=== PATIENT | female | born 1950 | race Caucasian/White ===

== ENCOUNTER 2019-04-27 10:17 | Outpatient (RCR) | payer MEDICARE, OTHER, SELFPAY | END 2019-05-08 00:01 | LOC: WOUND 10:17 | PROVIDERS: Family Provider Registered Nurse; Visit Provider Surgery | DX: T81.89XA Other complications of procedures, not elsewhere classified, initial encounter (principal); Y83.8 Other surgical procedures as the cause of abnormal reaction of the patient, or of later complication, without mention of misadventure at the time of the procedure; I96 Gangrene, not elsewhere classified | CPT/HCPCS: 11042 ×3; 36415; 73701; 80053; 93971; G0463; Q9967 ==

== ENCOUNTER → 2019-05-15 10:48 | Outpatient (BNVA) | payer MEDICARE, OTHER, SELFPAY | PROVIDERS: Family Provider Registered Nurse; PCP Registered Nurse; Referring Provider Registered Nurse; Visit Provider Orthopaedic Surgery | DX: S82.202A Unspecified fracture of shaft of left tibia, initial encounter for closed fracture (principal); S82.402A Unspecified fracture of shaft of left fibula, initial encounter for closed fracture; X58.XXXA Exposure to other specified factors, initial encounter | CPT/HCPCS: 73590 ==

== ENCOUNTER 2019-06-08 10:36 | Outpatient (RCR) | payer MEDICARE, OTHER, SELFPAY | END 2019-06-08 23:59 | disposition home or self-care (01) | LOC: WOUND 10:36 | PROVIDERS: Family Provider Registered Nurse; PCP Registered Nurse; Visit Provider Surgery | DX: T81.89XA Other complications of procedures, not elsewhere classified, initial encounter (principal); Y83.8 Other surgical procedures as the cause of abnormal reaction of the patient, or of later complication, without mention of misadventure at the time of the procedure | CPT/HCPCS: 11042; 99212 ==

== ENCOUNTER 2019-06-12 10:22 | Outpatient (CLI) | payer MEDICARE, OTHER, SELFPAY ==
--- NOTE | 2019-06-12 10:35 | XR_ITS ---
WS: [id number] TIBIA-FIBULA LEFT TECHNIQUE: 2 views of the left tibia-fibula CLINICAL INFORMATION: FRACTURE COMPARISON: None. FINDINGS: Left TKA. Postoperative changes plate and screw fixation proximal tibia extending to the distal tibia l plafond. Normal alignment. Patellar resurfacing. Plantar calcaneal spurring. XR/XR tibia fibula LT 2V [id number] IMPRESSION: 1. Left TKA with patellar resurfacing. 2. Postoperative changes plate and screw fixation tibial shaft extending to th e tibial plafond. Normal alignment. Evidence of some interval healing compared to previous. 3. Plantar calcaneal spurring.
== END 2019-06-12 10:23 | disposition home or self-care (01) ==
LOC: RAD 10:27
PROVIDERS: Family Provider Registered Nurse; PCP Registered Nurse; Visit Provider Orthopaedic Surgery
DX: S82.202A Unspecified fracture of shaft of left tibia, initial encounter for closed fracture (principal); S82.402A Unspecified fracture of shaft of left fibula, initial encounter for closed fracture; X58.XXXA Exposure to other specified factors, initial encounter; Z96.652 Presence of left artificial knee joint; M77.32 Calcaneal spur, left foot
CPT/HCPCS: 73590

== ENCOUNTER → 2020-03-18 14:19 | Outpatient (BNVA) | payer MEDICARE, OTHER, SELFPAY | PROVIDERS: Family Provider Registered Nurse; PCP Registered Nurse; Visit Provider Specialist | DX: G62.89 Other specified polyneuropathies | CPT/HCPCS: 95909 ==

== ENCOUNTER → 2020-04-02 12:17 | Outpatient (BNVA) | payer MEDICARE, OTHER, SELFPAY | PROVIDERS: Family Provider Registered Nurse; PCP Registered Nurse; Referring Provider Nurse Practitioner Family; Visit Provider Anesthesiology Pain Medicine | DX: M43.12 Spondylolisthesis, cervical region (principal) | CPT/HCPCS: 99203 ==

== ENCOUNTER → 2020-05-19 10:51 | Outpatient (BNVA) | payer MEDICARE, OTHER, SELFPAY | PROVIDERS: Family Provider Registered Nurse; PCP Registered Nurse; Visit Provider Nurse Practitioner | DX: G62.9 Polyneuropathy, unspecified (principal); M79.605 Pain in left leg | CPT/HCPCS: 99204; 99205 ==

== ENCOUNTER → 2020-05-20 10:57 | Outpatient (BNVA) | payer MEDICARE, OTHER, SELFPAY | PROVIDERS: Family Provider Registered Nurse; PCP Registered Nurse; Visit Provider Anesthesiology Pain Medicine | DX: M47.812 Spondylosis without myelopathy or radiculopathy, cervical region (principal); M48.02 Spinal stenosis, cervical region; M43.10 Spondylolisthesis, site unspecified | CPT/HCPCS: 99214 ==

== ENCOUNTER 2020-11-12 13:08 | Outpatient (CLI) | payer MEDICARE, OTHER, SELFPAY ==
--- NOTE | 2020-11-12 13:20 | MM_ITS ---
WS: [id number] BILATERAL SCREENING DIGITAL MAMMOGRAM WITH CAD HISTORY: SCREENING COMPARISON: 08/10/2018 and 12/26/2015 Bilateral CC and MLO views submitted. Computer aided detection analyzed. Breast composition: There are scattered areas of fibroglandular density. No suspicious masses, microc alcifications or architectural distortion. Stable 5 mm nodule 6:00 RIGHT breast at a middle depth. No suspicious groups of calcifications or distortion. MM/[place] [id number] IMPRESSION: BI-RADS: 2-Benign FOLLOW UP: 1 Year Follow-up
== END 2020-11-12 13:09 | disposition home or self-care (01) ==
LOC: RADSHAW 13:17
PROVIDERS: PCP Registered Nurse; Visit Provider Nurse Practitioner
DX: Z12.31 Encounter for screening mammogram for malignant neoplasm of breast (principal)
CPT/HCPCS: 77067

== ENCOUNTER 2021-01-29 13:58 | Outpatient (CLI) | payer MEDICARE, OTHER, SELFPAY ==
--- NOTE | 2021-01-29 14:45 | XR_ITS ---
WS: [id number] DEXA (DUAL ENERGY X-RAY ABSORPTIOMETRY) Bone mineral density was performed using a [employer] machine. HISTORY: M85.80 - Other specified disorders of bone density and st... COMPARISON: None available. Lumbar spine BMD (L1-L4): 1.032 g/cm2 T score: -1.2 Z score: -0.7 Total hip BMD: Left: 0.814 g/cm2. T score: -1.5 Z score: -0.9 Right: 0.823 g/cm2. T score: -1.5 Z score: -0.8 10 year probability of a major osteoporotic fracture is 19%. XR/XR DEXA axial skeleton* [id number] IMPRESSION: OSTEOPENIA based upon the WHO classification for females.
== END 2021-01-29 13:59 | disposition home or self-care (01) ==
PROVIDERS: PCP Registered Nurse; Visit Provider Registered Nurse
DX: Z78.0 Asymptomatic menopausal state (principal); M85.80 Other specified disorders of bone density and structure, unspecified site
CPT/HCPCS: 77080

== ENCOUNTER 2021-06-05 12:43 | Outpatient (CLI) | payer MEDICARE, OTHER, SELFPAY ==
--- NOTE | 2021-06-05 12:52 | US_ITS ---
WS: [id number] THYROID ULTRASOUND HISTORY: VERY LOW THYROID LAB RESULT COMPARISON: None available. Right lobe: 0.7 cm x 1.1 cm x 2.6 cm (w x ap x l). Volume: 1.0 cm3. Small shrunken heterogeneous atrophied thyroid lobe. Lobulated margins. There is a hyperechoic nodule with a maximum diameter 4 mm in the mid gland. Left lobe: 0.6 cm x 0.6 cm x 2.3 cm (w x ap x l). Volume: 0.4 cm3. Small shrunken heterogeneous thyroid lobe. No nodules or increased vascularity. Isthmus: 0.2 cm. US/US thyroid [id number] IMPRESSION: Shrunken, heterogeneous lobulated thyroid gland. No suspicious nodules.
== END 2021-06-05 12:44 | disposition home or self-care (01) ==
LOC: RAD 12:47
PROVIDERS: PCP Registered Nurse; Visit Provider Nurse Practitioner
DX: E03.9 Hypothyroidism, unspecified (principal)
CPT/HCPCS: 76536

== ENCOUNTER → 2021-07-08 10:36 | Outpatient (BNVA) | payer MEDICARE, OTHER, SELFPAY | PROVIDERS: PCP Registered Nurse; Referring Provider Registered Nurse; Visit Provider Anesthesiology Pain Medicine | DX: G89.29 Other chronic pain (principal); M47.812 Spondylosis without myelopathy or radiculopathy, cervical region; M48.02 Spinal stenosis, cervical region; M43.10 Spondylolisthesis, site unspecified; M79.605 Pain in left leg; Z87.81 Personal history of (healed) traumatic fracture | CPT/HCPCS: 99214 ==

== ENCOUNTER → 2021-08-05 10:11 | Outpatient (BNVA) | payer MEDICARE, OTHER, SELFPAY | PROVIDERS: PCP Registered Nurse; Visit Provider Anesthesiology Pain Medicine | DX: G89.29 Other chronic pain (principal); M47.816 Spondylosis without myelopathy or radiculopathy, lumbar region; M48.02 Spinal stenosis, cervical region; M47.812 Spondylosis without myelopathy or radiculopathy, cervical region; R29.898 Other symptoms and signs involving the musculoskeletal system; M79.605 Pain in left leg; M43.10 Spondylolisthesis, site unspecified; Z87.81 Personal history of (healed) traumatic fracture; E06.3 Autoimmune thyroiditis; E03.8 Other specified hypothyroidism | CPT/HCPCS: 72110; 99203; 99204; 99214 ==

== ENCOUNTER → 2021-08-20 10:09 | Outpatient (BNVA) | payer MEDICARE, OTHER, SELFPAY | PROVIDERS: PCP Registered Nurse; Visit Provider Internal Medicine | DX: R41.3 Other amnesia (principal); E03.8 Other specified hypothyroidism; E06.3 Autoimmune thyroiditis | CPT/HCPCS: 84439; 84443 ==

== ENCOUNTER → 2021-09-02 09:57 | Outpatient (BNVA) | payer MEDICARE, OTHER, SELFPAY | PROVIDERS: PCP Registered Nurse; Visit Provider Anesthesiology Pain Medicine | DX: G89.29 Other chronic pain (principal); M47.812 Spondylosis without myelopathy or radiculopathy, cervical region; M48.02 Spinal stenosis, cervical region; M79.605 Pain in left leg; M43.10 Spondylolisthesis, site unspecified; G62.9 Polyneuropathy, unspecified; R29.898 Other symptoms and signs involving the musculoskeletal system; Z87.81 Personal history of (healed) traumatic fracture | CPT/HCPCS: 99214 ==

== ENCOUNTER 2021-10-13 13:39 | Outpatient (RCR) | payer MEDICARE, OTHER, SELFPAY | END 2021-11-05 23:59 | disposition home or self-care (01) | LOC: SPT 13:39 | PROVIDERS: PCP Registered Nurse; Referring Provider Obstetrics & Gynecology; Visit Provider Obstetrics & Gynecology | DX: N39.41 Urge incontinence (principal) | CPT/HCPCS: 97110; 97161 ==

== ENCOUNTER 2021-10-20 15:40 | Outpatient (CLI) | payer MEDICARE, OTHER, SELFPAY ==
--- NOTE | 2021-10-20 16:00 | MR_ITS ---
WS: [id number] MRI LUMBAR SPINE NONCONTRAST TECHNIQUE: Sagittal T1, T2 and STIR imaging. Axial T1 and T2 imaging. CLINICAL INFORMATION: M48.062 - Spinal stenosis, lumbar region with neurogenic ... COMPARISON: None. FINDINGS: Mild lumbar curve convex LEFT. No acute compression. No high-grade central canal stenosis. L1-L2: Mild annular bulging. Mild facet arthropathy. Spinal canal and foramen are patent. L2-L3: No significant disc bulging. Mild facet arthropathy. Spinal canal and foramen are patent. L3-L4: Mild annular bulging. Small RIGHT foraminal protrusion. Mild RIGHT and no significant LEFT for aminal narrowing. Impingement on the exiting RIGHT L3 nerve root. This moderate facet arthropathy. L4-L5: Mild annular bulging. Moderate facet arthropathy ligamentum flavum hypertrophy. Mild to modera te narrowing of the thecal sac. Prominent epidural fat. LEFT eccentric disc bulging with mild LEFT fo raminal narrowing and contact of the exiting L4 nerve root. L5-S1: Mild disc bulging and osteophytic ridging. Slight effacement of ventral thecal sac. Slight con tact of the RIGHT S1 nerve root. Spinal canal and foramen are patent. Mild facet arthropathy. 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 MR/MR lumbar spine wo con* [id number] IMPRESSION: 1. Mild lumbar curve convex LEFT. No acute compression. No high-grade central canal stenosis. 2. Mild narrowing of the thecal sac L3-L4 and moderate narrowing L4-L5 due to slight annular bulging in combination with facet arthropathy and ligamentum fla vum hypertrophy with prominent epidural fat. 3. RIGHT foraminal protrusion L3-L4 impinges the exiting RIGHT L3 nerve root. Recommend correlation RIGHT L3 nerve root symptoms. 4. Disc bulging with osteophytic ridging L5-S1 slightly contacts RIGHT S1 nerv e root. 5. Mild LEFT L4-L5 foraminal narrowing. 6. Moderate facet arthropathy L3-L4 L4-L5.
== END 2021-10-20 15:41 | disposition home or self-care (01) ==
LOC: RAD 15:42
PROVIDERS: PCP Registered Nurse; Visit Provider Anesthesiology Pain Medicine
DX: M48.062 Spinal stenosis, lumbar region with neurogenic claudication (principal); M51.16 Intervertebral disc disorders with radiculopathy, lumbar region; M47.816 Spondylosis without myelopathy or radiculopathy, lumbar region
CPT/HCPCS: 72148

== ENCOUNTER → 2021-11-02 09:55 | Outpatient (BNVA) | payer MEDICARE, OTHER, SELFPAY | PROVIDERS: PCP Registered Nurse; Visit Provider Anesthesiology Pain Medicine | DX: G89.29 Other chronic pain (principal); M47.816 Spondylosis without myelopathy or radiculopathy, lumbar region; M43.12 Spondylolisthesis, cervical region; M41.9 Scoliosis, unspecified; M79.605 Pain in left leg; M47.812 Spondylosis without myelopathy or radiculopathy, cervical region; M48.02 Spinal stenosis, cervical region; G62.9 Polyneuropathy, unspecified; R29.898 Other symptoms and signs involving the musculoskeletal system; Z87.81 Personal history of (healed) traumatic fracture | CPT/HCPCS: 99214 ==

== ENCOUNTER 2021-11-06 06:00 | Outpatient (RCR) | payer MEDICARE, OTHER, SELFPAY | END 2021-12-06 23:59 | disposition home or self-care (01) | LOC: SPT 06:00 | PROVIDERS: PCP Registered Nurse; Referring Provider Obstetrics & Gynecology; Visit Provider Obstetrics & Gynecology | DX: N39.41 Urge incontinence (principal) | CPT/HCPCS: 97110; 97112; 97530 ==

== ENCOUNTER 2021-11-17 06:00 | Outpatient (RCR) | payer MEDICARE, OTHER, SELFPAY | END 2021-12-06 23:59 | disposition home or self-care (01) | LOC: SPT 06:00 | PROVIDERS: PCP Registered Nurse; Referring Provider Anesthesiology Pain Medicine; Visit Provider Anesthesiology Pain Medicine | DX: M47.816 Spondylosis without myelopathy or radiculopathy, lumbar region (principal); M43.10 Spondylolisthesis, site unspecified; M41.9 Scoliosis, unspecified | CPT/HCPCS: 97110; 97161 ==

== ENCOUNTER 2021-12-07 06:00 | Outpatient (RCR) | payer MEDICARE, OTHER, SELFPAY | END 2022-01-06 23:59 | disposition home or self-care (01) | LOC: SPT 06:00 | PROVIDERS: Visit Provider Obstetrics & Gynecology | DX: M47.816 Spondylosis without myelopathy or radiculopathy, lumbar region (principal); M43.10 Spondylolisthesis, site unspecified; M41.9 Scoliosis, unspecified | CPT/HCPCS: 97110; 97530 ==

== ENCOUNTER 2021-12-07 06:00 | Outpatient (RCR) | payer MEDICARE, OTHER, SELFPAY | END 2022-01-06 23:59 | disposition home or self-care (01) | LOC: SPT 06:00 | PROVIDERS: Visit Provider Anesthesiology Pain Medicine | DX: M47.816 Spondylosis without myelopathy or radiculopathy, lumbar region (principal); M43.10 Spondylolisthesis, site unspecified; M41.9 Scoliosis, unspecified | CPT/HCPCS: 97110; 97530 ==

== ENCOUNTER 2021-12-14 13:09 | Outpatient (CLI) | payer OTHER, MEDICARE, SELFPAY ==
--- NOTE | 2021-12-14 13:25 | MM_ITS ---
WS: [id number] BILATERAL 3D TOMOSYNTHESIS DIGITAL SCREENING MAMMOGRAPHY WITH CAD CLINICAL INFORMATION: SCREENING HISTORY: Screening mammogram. No current complaints. COMPARISON: November 12, 2020 TECHNIQUE: Bilateral CC and MLO views. FINDINGS: Scattered fibroglandular densities bilaterally. Stable 5 mm nodule 6:00 position RIGHT breast mid dep th. No suspicious focal mass, asymmetry, calcifications, or architectural distortion. No evidence of malignancy. MM/[place] [id number] IMPRESSION: BI-RADS: 2-Benign FOLLOW UP: 1 Year Follow-up Recommend return to annual screening mammography.
== END 2021-12-14 13:10 | disposition home or self-care (01) ==
PROVIDERS: PCP Registered Nurse; Visit Provider Nurse Practitioner
DX: Z12.31 Encounter for screening mammogram for malignant neoplasm of breast (principal)
CPT/HCPCS: 77063; 77067

== ENCOUNTER → 2021-12-28 08:52 | Outpatient (BNVA) | payer MEDICARE, OTHER, SELFPAY | PROVIDERS: Visit Provider Anesthesiology Pain Medicine | DX: M43.12 Spondylolisthesis, cervical region (principal); G89.29 Other chronic pain; M47.812 Spondylosis without myelopathy or radiculopathy, cervical region; M79.605 Pain in left leg; M48.02 Spinal stenosis, cervical region; M47.816 Spondylosis without myelopathy or radiculopathy, lumbar region; R29.898 Other symptoms and signs involving the musculoskeletal system; M41.9 Scoliosis, unspecified; G62.9 Polyneuropathy, unspecified; Z87.81 Personal history of (healed) traumatic fracture | CPT/HCPCS: 99213 ==

== ENCOUNTER 2022-01-07 06:00 | Outpatient (RCR) | payer OTHER, SELFPAY | END 2022-02-05 23:59 | disposition home or self-care (01) | LOC: SPT 06:00 | PROVIDERS: Visit Provider Anesthesiology Pain Medicine | DX: M47.816 Spondylosis without myelopathy or radiculopathy, lumbar region (principal); M43.10 Spondylolisthesis, site unspecified; M41.9 Scoliosis, unspecified | CPT/HCPCS: 97110; 97530 ==

== ENCOUNTER 2022-01-19 06:00 | Outpatient (RCR) | payer OTHER, SELFPAY | END 2022-02-05 23:59 | disposition home or self-care (01) | LOC: SPT 06:00 | PROVIDERS: Visit Provider Nurse Practitioner | DX: M26.69 Other specified disorders of temporomandibular joint (principal) | CPT/HCPCS: 20560; 97110; 97161 ==

== ENCOUNTER 2022-02-06 06:00 | Outpatient (RCR) | payer OTHER, SELFPAY | END 2022-03-08 23:59 | disposition home or self-care (01) | LOC: SPT 06:00 | PROVIDERS: Visit Provider Nurse Practitioner | DX: M26.69 Other specified disorders of temporomandibular joint (principal) | CPT/HCPCS: 20560; 97110 ==

== ENCOUNTER 2022-03-09 06:00 | Outpatient (RCR) | payer OTHER, SELFPAY | END 2022-04-07 23:59 | disposition home or self-care (01) | LOC: SPT 06:00 | PROVIDERS: Visit Provider Nurse Practitioner | DX: M25.552 Pain in left hip (principal) | CPT/HCPCS: 97110 ==

== ENCOUNTER 2022-04-08 06:00 | Outpatient (RCR) | payer OTHER, SELFPAY | END 2022-05-08 23:59 | disposition home or self-care (01) | LOC: SPT 06:00 | PROVIDERS: Visit Provider Nurse Practitioner | DX: M47.816 Spondylosis without myelopathy or radiculopathy, lumbar region (principal); M43.10 Spondylolisthesis, site unspecified; M41.9 Scoliosis, unspecified | CPT/HCPCS: 97110 ==

== ENCOUNTER 2022-05-18 06:00 | Outpatient (RCR) | payer OTHER, SELFPAY | END 2022-06-08 23:59 | disposition home or self-care (01) | LOC: SPT 06:00 | PROVIDERS: Visit Provider Nurse Practitioner | DX: M25.552 Pain in left hip (principal) | CPT/HCPCS: 97110; 97161 ==

== ENCOUNTER 2022-06-09 06:00 | Outpatient (RCR) | payer OTHER, SELFPAY | END 2022-07-06 23:59 | disposition home or self-care (01) | LOC: SPT 06:00 | PROVIDERS: Visit Provider Nurse Practitioner | DX: M25.552 Pain in left hip (principal) | CPT/HCPCS: 97110 ==

== ENCOUNTER → 2022-06-28 10:53 | Outpatient (BNVA) | payer OTHER, SELFPAY | PROVIDERS: Visit Provider Anesthesiology Pain Medicine | DX: M54.9 Dorsalgia, unspecified (principal); M79.605 Pain in left leg | CPT/HCPCS: 99212 ==

== ENCOUNTER 2022-07-07 06:00 | Outpatient (RCR) | payer OTHER, SELFPAY | END 2022-08-06 23:59 | disposition home or self-care (01) | LOC: SPT 06:00 | PROVIDERS: Visit Provider Nurse Practitioner | DX: M25.552 Pain in left hip (principal) | CPT/HCPCS: 20560; 97110 ==

== ENCOUNTER 2022-08-07 06:00 | Outpatient (RCR) | payer OTHER, SELFPAY | END 2022-09-05 23:59 | disposition home or self-care (01) | LOC: SPT 06:00 | PROVIDERS: Visit Provider Nurse Practitioner | DX: M25.552 Pain in left hip (principal) | CPT/HCPCS: 97110 ==

== ENCOUNTER → 2022-08-09 14:20 | Outpatient (BNVA) | payer OTHER, SELFPAY | PROVIDERS: Visit Provider Podiatrist Foot & Ankle Surgery | DX: M76.71 Peroneal tendinitis, right leg (principal); M21.41 Flat foot [pes planus] (acquired), right foot; M21.42 Flat foot [pes planus] (acquired), left foot | CPT/HCPCS: 99213 ==

== ENCOUNTER → 2022-08-10 14:52 | Outpatient (BNVA) | payer OTHER, SELFPAY | PROVIDERS: Visit Provider Otolaryngology | DX: R13.10 Dysphagia, unspecified (principal); K21.9 Gastro-esophageal reflux disease without esophagitis; K44.9 Diaphragmatic hernia without obstruction or gangrene; E66.9 Obesity, unspecified; Z68.38 Body mass index [BMI] 38.0-38.9, adult | CPT/HCPCS: 31575; 99204 ==

== ENCOUNTER → 2022-10-11 13:11 | Outpatient (BNVA) | payer OTHER, SELFPAY | PROVIDERS: PCP Nurse Practitioner; Visit Provider Otolaryngology | DX: R13.10 Dysphagia, unspecified (principal); K21.9 Gastro-esophageal reflux disease without esophagitis; K44.9 Diaphragmatic hernia without obstruction or gangrene | CPT/HCPCS: 31575; 99213 ==

== ENCOUNTER → 2022-10-12 15:21 | Outpatient (BNVA) | payer MEDICARE, OTHER, SELFPAY | PROVIDERS: PCP Nurse Practitioner; Visit Provider Dermatology | DX: S20.462A Insect bite (nonvenomous) of left back wall of thorax, initial encounter (principal); W57.XXXA Bitten or stung by nonvenomous insect and other nonvenomous arthropods, initial encounter; L81.4 Other melanin hyperpigmentation; L57.0 Actinic keratosis; D23.71 Other benign neoplasm of skin of right lower limb, including hip; L82.1 Other seborrheic keratosis; D23.39 Other benign neoplasm of skin of other parts of face; D18.01 Hemangioma of skin and subcutaneous tissue | CPT/HCPCS: 17000; 17003; 99213 ==

== ENCOUNTER → 2022-11-15 13:07 | Outpatient (BNVA) | payer OTHER, SELFPAY | PROVIDERS: PCP Nurse Practitioner; Visit Provider Podiatrist Foot & Ankle Surgery | DX: M76.71 Peroneal tendinitis, right leg (principal); M21.41 Flat foot [pes planus] (acquired), right foot; M21.42 Flat foot [pes planus] (acquired), left foot; M76.72 Peroneal tendinitis, left leg | CPT/HCPCS: 99213 ==

== ENCOUNTER 2023-01-20 11:43 | Outpatient (CLI) | payer OTHER, SELFPAY ==
--- NOTE | 2023-01-20 11:48 | MM_ITS ---
WS: [id number] BILATERAL SCREENING DIGITAL TOMOSYNTHESIS MAMMOGRAM WITH CAD HISTORY: SCREENING COMPARISON: 12/14/2021, 11/12/2020 Bilateral CC and MLO views with tomosynthesis and synthetic mammography submitted. Computer aided det ection analyzed. Breast composition: The breasts are almost entirely fatty. No suspicious masses, microcalcifications or architectural distortion. Round nodule measuring 4 mm in the anterior central RIGHT breast is stab le over multiple prior studies. No new mass or calcification. IMPRESSION: MM/[place] [id number] BI-RADS: 2-Benign FOLLOW UP: 1 Year Follow-up
== END 2023-01-20 11:44 | disposition home or self-care (01) ==
PROVIDERS: PCP Nurse Practitioner; Visit Provider Nurse Practitioner
DX: Z12.31 Encounter for screening mammogram for malignant neoplasm of breast (principal)
CPT/HCPCS: 77063; 77067

== ENCOUNTER → 2023-09-05 13:57 | Outpatient (BNVA) | payer OTHER, SELFPAY | PROVIDERS: PCP Nurse Practitioner; Visit Provider Dermatology | DX: D17.1 Benign lipomatous neoplasm of skin and subcutaneous tissue of trunk (principal); L71.8 Other rosacea; S80.861A Insect bite (nonvenomous), right lower leg, initial encounter; X58.XXXA Exposure to other specified factors, initial encounter; L81.4 Other melanin hyperpigmentation; D18.01 Hemangioma of skin and subcutaneous tissue; L82.1 Other seborrheic keratosis | CPT/HCPCS: 99214 ==

== ENCOUNTER → 2023-10-06 09:17 | Outpatient (BNVA) | payer OTHER, SELFPAY | PROVIDERS: PCP Nurse Practitioner; Visit Provider Dermatology | DX: D48.5 Neoplasm of uncertain behavior of skin (principal) | CPT/HCPCS: 11406; 12034 ==

== ENCOUNTER → 2024-10-18 14:23 | Outpatient (BNVA) | payer OTHER, SELFPAY | PROVIDERS: PCP Registered Nurse; Visit Provider Dermatology | DX: L71.8 Other rosacea (principal); L82.1 Other seborrheic keratosis; D22.5 Melanocytic nevi of trunk; S90.562A Insect bite (nonvenomous), left ankle, initial encounter; X58.XXXA Exposure to other specified factors, initial encounter; L81.4 Other melanin hyperpigmentation; B35.1 Tinea unguium; D48.5 Neoplasm of uncertain behavior of skin | CPT/HCPCS: 11102; 99213 ==

== ENCOUNTER → 2024-12-04 13:19 | Outpatient (BNVA) | payer OTHER, SELFPAY | PROVIDERS: PCP Nurse Practitioner; Visit Provider Podiatrist Foot & Ankle Surgery | DX: L60.3 Nail dystrophy (principal) | CPT/HCPCS: 99213 ==

== ENCOUNTER 2024-12-24 14:39 | Oncology outpatient (recurring) (ONCR) | payer OTHER, SELFPAY | END 2025-01-06 23:59 | disposition home or self-care (01) | PROVIDERS: PCP Nurse Practitioner; Visit Provider Internal Medicine Medical Oncology | DX: Z08 Encounter for follow-up examination after completed treatment for malignant neoplasm (principal); Z85.3 Personal history of malignant neoplasm of breast; Z92.3 Personal history of irradiation | CPT/HCPCS: 99204 ==

== ENCOUNTER → 2025-01-01 13:00 | Outpatient (BNVA) | payer OTHER, SELFPAY | PROVIDERS: PCP Nurse Practitioner; Visit Provider Podiatrist Foot & Ankle Surgery | DX: L60.3 Nail dystrophy (principal); L60.8 Other nail disorders; B35.1 Tinea unguium | CPT/HCPCS: 99213 ==

== ENCOUNTER 2025-02-05 14:33 | Outpatient (CLI) | payer OTHER, SELFPAY ==
--- NOTE | 2025-02-05 14:38 | XR_ITS ---
WS: [email or web address] DEXA (DUAL ENERGY X-RAY ABSORPTIOMETRY) Bone mineral density was performed using a [employer] machine. HISTORY: SCREENING FOR OSTEOPOROSIS COMPARISON: 01/29/2021 Lumbar spine BMD (L1-L4): 1.177 g/cm2 T score: 0.0 Z score: 0.6 Total hip BMD: Left: 0.834 g/cm2. T score: -1.4 Z score: -0.5 Right: 0.858 g/cm2. T score: -1.2 Z score: -0.3 10 year probability of a major osteoporotic fracture is 16.5%. Compared to the prior study from 01/29/2021. Lumbar spine bone mineral density has increased by 14.1%. Bilateral hips bone mineral density has increased by 3.3%. XR/XR DEXA axial skeleton* [id number] IMPRESSION: OSTEOPENIA based upon the WHO classification for females. Significant increase in bone mineral density within the lumbar spine and hips s manjula the prior study.
== END 2025-02-05 14:34 | disposition home or self-care (01) ==
LOC: RAD 14:35
PROVIDERS: PCP Nurse Practitioner; Visit Provider Nurse Practitioner
DX: Z13.820 Encounter for screening for osteoporosis (principal); M81.0 Age-related osteoporosis without current pathological fracture; M85.89 Other specified disorders of bone density and structure, multiple sites
CPT/HCPCS: 77080

== ENCOUNTER 2025-03-07 11:50 | Outpatient (RCR) | payer OTHER, SELFPAY | END 2025-03-08 23:59 | disposition home or self-care (01) | LOC: WPT 11:50 | PROVIDERS: PCP Nurse Practitioner; Visit Provider Nurse Practitioner | DX: M25.552 Pain in left hip (principal) | CPT/HCPCS: 97110; 97112; 97140; 97161; 97530 ==